=== PATIENT | female | born 1955 | race Caucasian/White ===

== ENCOUNTER 2019-03-21 01:43 | Outpatient (CLI) | payer OTHER, SELFPAY ==
--- NOTE | 2019-03-21 14:44 | DI.MAMMO_ITS ---
SYMPTOMS/DIAGNOSIS: H/O BREAST CA, Z85.3 MAMMOGRAMS: Mammograms were interpreted according to the usual protocol including computer analysis with CAD system, tomosynthesis and C view imaging. The breasts are of moderate density. Note is made of a prior right lumpectomy in the upper outer quadrant for breast carcinoma. No new mass or clumped microcalcification identified in either breast. Examination is compared with the previous examinations including March 2017 and there has been no gross interval change in appearance in comparison with the previous studies. CONCLUSION: No specific evidence of malignancy at this time. Routine screening examinations are suggested at yearly intervals due to the history of breast carcinoma. Category 1, breast density category B. SA ASSESSMENT OF FINDINGS: Negative. Category 1. Patient will receive a letter notifying them of these results. BI-RADS category B. There are scattered areas of fibroglandular density.
== END 2019-03-21 02:03 ==
PROVIDERS: PCP Internal Medicine; Visit Provider Internal Medicine
DX: Z85.3 Personal history of malignant neoplasm of breast (principal); Z98.890 Other specified postprocedural states
CPT/HCPCS: 77062; 77066; G0279

== ENCOUNTER 2020-06-22 00:55 | Outpatient (CLI) | payer OTHER, SELFPAY ==
--- NOTE | 2020-06-22 | DI.MAMMO_ITS ---
EXAM: MG MAMMO SCREENING 60 MIN DUR CLINICAL HISTORY: SCREENING, PERSONAL H/O BREAST CA,Z85.3 TECHNIQUE: Mammograms were interpreted according to the usual protocol including computer analysis w [employer] CAD system, tomosynthesis and C-view imaging. COMPARISON: FINDINGS: Note is made of a prior right lumpectomy for breast carcinoma. No new mass or clumped microcalcifica tion identified in either breast. The current examination is compared with previous studies March 2019 and there has been no gross interval change in appearance in comparison with the prior studies. IMPRESSION: No specific evidence of malignancy at this time. Routine screening examinations are suggested at yea rly intervals due to the history of breast carcinoma. BI-RADS Category 1 - Negative Breast Density - Category C - Heterogeneously dense
== END 2020-06-22 01:15 ==
PROVIDERS: PCP Internal Medicine; Visit Provider Internal Medicine
DX: Z12.31 Encounter for screening mammogram for malignant neoplasm of breast (principal); Z85.3 Personal history of malignant neoplasm of breast
CPT/HCPCS: 77063; 77067

== ENCOUNTER 2020-11-01 16:29 | Outpatient (REF) | payer OTHER, SELFPAY ==
[2020-11-01 22:06] LABS: Anion Gap 7.9 mmol/L (3-11); BUN 12 mg/dL (7-18); CO2 28.1 mmol/L (21.0-32.0); CREATININE 0.88 mg/dL (0.55-1.02); Calcium 8.6 mg/dL (8.5-10.1); Calculated LDL 98 mg/dL (<100); Chloride 101 mmol/L (98-107); Cholesterol 211 mg/dL (<200); Glucose 110 mg/dL (74-106); HDL Cholesterol 106 mg/dL (40-60); Potassium 4.2 mmol/L (3.5-5.1); Sodium 137 mmol/L (136-145); TSH 3.24 uIU/mL (0.36-3.74); Triglyceride 38 mg/dL (<150)
== END 2020-11-01 16:49 ==
LOC: NCHCN 16:29
PROVIDERS: PCP Internal Medicine; Visit Provider Internal Medicine
DX: E10.65 Type 1 diabetes mellitus with hyperglycemia (principal); R03.0 Elevated blood-pressure reading, without diagnosis of hypertension; Z13.220 Encounter for screening for lipoid disorders
CPT/HCPCS: 80048; 80061; 84443

== ENCOUNTER 2021-01-21 19:05 | Outpatient (REF) | payer OTHER, SELFPAY ==
[2021-01-22 16:55] LABS: COVID-19 RT-PCR UVMMC Result Positive (Negative)
== END 2021-01-21 19:06 | disposition home or self-care (01) ==
LOC: NCHCN 19:05
PROVIDERS: PCP Internal Medicine; Visit Provider Internal Medicine
DX: Z20.828 Contact with and (suspected) exposure to other viral communicable diseases (principal)
CPT/HCPCS: U0003

== ENCOUNTER 2021-01-24 10:48 | Outpatient (CLI) | payer OTHER, SELFPAY ==
[2021-01-24 14:45] VITALS: BP 158/99; PULSE 63; RESP 16; TEMP 37.2; O2SAT 98
[2021-01-24] MEDS: Normal Saline Flush 10 ML SYR IVP (15:02)
[2021-01-24] MEDS: Normal Saline 500 ML 30 ML IV (15:02)
[2021-01-24 15:10] VITALS: BP 149/82; PULSE 56; RESP 16; TEMP 37.8; O2SAT 96
[2021-01-24 15:30] VITALS: BP 138/94; PULSE 52; RESP 16; TEMP 37.2; O2SAT 96
[2021-01-24 16:00] VITALS: BP 149/76; PULSE 54; RESP 18; TEMP 37.5; O2SAT 96
[2021-01-24 16:29] VITALS: BP 156/79; PULSE 66; RESP 16; TEMP 36.9; O2SAT 97
== END 2021-01-24 10:49 | disposition home or self-care (01) ==
LOC: INF 10:58
PROVIDERS: PCP Internal Medicine; Visit Provider Family Medicine
DX: U07.1 COVID-19 (principal)
CPT/HCPCS: 96365

== ENCOUNTER 2022-02-14 01:47 | Outpatient (CLI) | payer OTHER, SELFPAY ==
--- NOTE | 2022-02-14 | DI.MAMMO_ITS ---
Exam(s) MG MAMMO SCREENING 60 MIN DUR EXAM: MG MAMMO SCREENING 60 MIN DUR CLINICAL HISTORY: SCREENING FOR BREAST CANCER Z12.39, HX BREAST CANCER Z85.3 TECHNIQUE: Bilateral full field digital CC and MLO mammographic images were obtained with 3D tomosyn thesis and utilizing computer aided detection (CAD). COMPARISON: Available for comparison. FINDINGS: Masses/Architectural Distortion: None seen. The patient is status post right lumpectomy. Microcalcifications: No suspicious pleomorphic-type are seen. Skin Thickening/Nipple Retraction: None. IMPRESSION: 1. No significant interval change with no specific features of malignancy noted. 2. Unless there is more urgent need, screening mammography is recommended, as per [employer] guidelines. 3. Findings were discussed with the patient on the date of the examination. BI-RADS Category 2 - Benign Findings Breast Density - Category B - Scattered areas of fibroglandular density Breast density category C or D implies that the patient has dense breast tissue. Dense breast tissue is very common and is not abnormal but dense breast tissue can make it harder to find cancer on a ma mmogram. Also, dense breast tissue may increase their breast cancer risk. This information about the result of the mammogram report was provided to the patient to raise their awareness. Use this report when you speak with the patient about their risks for breast cancer, which includes their family hist ory. At that time, you may recommend for more screening tests (Ultrasound or MRI) as they might be us eful based on their risk. A negative radiographic report should not delay biopsy if a dominant or clinically suspicious mass is present. Up to ten percent of cancers are not identified on mammography. A negative report may reinforce clinical impression. Adenosis and dense breasts may obscure an underlying neoplasm. False positive reports average 6 to 10%. Patient will receive a letter notifying them of these results.
== END 2022-02-14 02:07 ==
PROVIDERS: PCP Internal Medicine; Visit Provider Family Medicine
DX: Z12.31 Encounter for screening mammogram for malignant neoplasm of breast (principal); Z85.3 Personal history of malignant neoplasm of breast; Z98.890 Other specified postprocedural states
CPT/HCPCS: 77063; 77067

== ENCOUNTER 2022-05-31 18:04 | Outpatient (REF) | payer OTHER, SELFPAY ==
[2022-05-31 20:25] LABS: HGB 13.4 g/dL (11.2-15.7); MCH 30.1 pg (27.0-33.0); MCHC 34.4 % (32.0-36.0); MCV 88 fL (80-95); MPV 11.5 fL (8.0-11.0); Platelet Count 212 10^3/uL (130-400); RBC 4.45 10^6/uL (3.93-5.22); RDW 12.8 % (11.7-14.6)
[2022-05-31 21:03] LABS: ALT 48 U/L (14-59); AST 32 U/L (15-37); Alkaline Phosphatase 73 U/L (46-116); Anion Gap 7.1 mmol/L (3-11); BUN 12 mg/dL (7-18); Bilirubin, Total 0.5 mg/dL (0.2-1.0); CO2 27.9 mmol/L (21.0-32.0); CREATININE 0.9 mg/dL (0.55-1.02); Chloride 102 mmol/L (98-107); Glucose 157 mg/dL (74-106); Potassium 4.3 mmol/L (3.5-5.1); Sodium 137 mmol/L (136-145); TSH (W/Ref FT4) 3.37 uIU/mL (0.36-3.74); Total Protein 7.2 g/dL (6.4-8.2)
== END 2022-05-31 18:05 | disposition home or self-care (01) ==
LOC: NCHCN 18:04
PROVIDERS: PCP Internal Medicine; Visit Provider Family Medicine
DX: E10.9 Type 1 diabetes mellitus without complications (principal); R03.0 Elevated blood-pressure reading, without diagnosis of hypertension; E04.2 Nontoxic multinodular goiter; Z00.00 Encounter for general adult medical examination without abnormal findings
CPT/HCPCS: 80053; 85027; 84443

== ENCOUNTER 2022-09-21 02:13 | Outpatient (CLI) | payer MEDICARE, SELFPAY ==
--- NOTE | 2022-09-21 10:36 | DI.US_ITS ---
APPROVED REPORT EXAM: Comprehensive 2D, Doppler, and color-flow Echocardiogram Patient Location: Out-Patient Marketing Underwriter: Shannon Guevara RDCS (AE) Indications: Undiagnosed cardiac murmur Other Information Study Quality: Adequate Conclusion Normal left ventricular wall thickness and chamber size. Estimated ejection fraction is 60 to 65%. Wall motion is normal Normal right ventricular size and systolic function Both atria are normal in size There are no structural valvular abnormalities Mild to moderate mitral regurgitation Trace to mild tricuspid regurgitation. Estimated right ventricular systolic pressure is 43 mmHg Wall motion Left Ventricle The left ventricle is normal size. The left ventricular systolic function is normal. The left ventric ular ejection fraction is within the normal range. There is normal left ventricular wall thickness. T here is normal LV segmental wall motion. There is no ventricular septal defect visualized. LVEF is 60 -65%. Right Ventricle The right ventricle is normal size. The right ventricular systolic function is normal. The RVSP is 43 .1mmHg. Atria The left atrium size is normal. The right atrium size is normal. The interatrial septum is intact wit h no evidence for an atrial septal defect. Aortic Valve The aortic valve is normal in structure. Aortic valve is trileaflet. There is no aortic valvular sten osis. No aortic regurgitation is present. Mitral Valve The mitral valve is normal in structure. No evidence of mitral valve stenosis. Mild to moderate frank l regurgitation. Tricuspid Valve The tricuspid valve is normal in structure. There is no tricuspid valve stenosis. Trace to mild tricu spid regurgitation. Pulmonic Valve The pulmonary valve is normal in structure. There is no pulmonic valvular stenosis. Trace pulmonic re gurgitation. Great Vessels The aortic root is normal in size. The ascending aorta is normal in size. Aortic arch is normal in ca liber. IVC is normal in size and collapses >50% with inspiration. Pericardium There is no pericardial effusion. 2D Dimensions IVSD d PLAX 0.99 cm F: 0.6-1.0 LV Vol A2C d MOD 82.6 mL LVPW d PLAX 0.98 cm F: 0.6 - 1.0 LV Vol A4C d MOD 93.4 mL LVID d PLAX 4.76 cm F: 3.8 - 5.2 LA vol/ BSA A2C s A-L 27.4 mL/m2 LVDs 3.20 cm F: 2.2 - 3.5 LA vol/ BSA A4C s A-L 34.5 mL/m2 Ao Root d 2.37 cm F: 2.7 - 3.3 LA Vol/ BSA Biplane s A-L 31.6 mL/m2 RA Area A4C 10.48 cm2 LA Area A4C s MOD 21.33 cm2 RA Vol/ BSA A4C s A-L 12.0 mL/m2 LA Area A2C s MOD 18.53 cm2 Ao Asc Diam d 2.74 cm F: 2.3 - 3.1 LV EF A4C MOD 60.0 % LV EF Teichholz 60.3 % LV EF A2C MOD 65.2 % LVEF (Oneal's) 63.05 % F: 54 - 74 LV EF Biplane MOD 63.0 % LV Volume 69.23 mL F: 46 - 106 SV 56.17 mL LV Volume Index 38.46 mL/m2 F: 29 - 61 SV Index 31.12 mL/m2 LV Vol Biplane MOD 89.1 mL FS 32.15 % M-Mode TAPSE 2.96 cm (M/F) >1.7 LV Diastology MV E' medial 0.147 (>0.07 m/s) E/A Ratio 1.1 LV E/e MED 7.95 (<14) MV E Vmax 1.17 (0.4-1.3 m/s) MV E' lateral 0.110 (>0.1 m/s) MV A Vmax 1.05 (0.4-1.3 m/s) LV E/e LAT 10.65 (<14) MV E/A Ratio 1.08 MV E/E' medial 7.95 MV E/E' lateral 10.65 Aortic Valve LVOT Area 2.87 cm2 AoV Area Vmax 2.22 cm2 LVOT Vmax 1.28 m/s AoV Area/ BSA (Vmax) 1.23 cm2/m2 LVOT Mean Pankaj. 0.84 m/s CLARENCE Mean Pankaj. 1.96 cm2 LVOT Peak Grad 6.5 mmHg CLARENCE Mean Pankaj. Index 1.09 cm2/m2 LVOT Mean Grad 3.3 mmHg LVOT VTI 0.307 m LVOT Diam s 1.90 cm AoV Vmax 1.65 m/s Velocity Ratio 0.77 AoV Mean Pankaj. 1.23 m/s AoV Peak Grad 10.9 mmHg LVOT SV 88.33 mL AoV Mean Grad 6.5 mmHg AoV VTI 0.369 m AoV Area VTI 2.39 cm2 AoV Area/ BSA (VTI) 1.33 cm/m2 Mitral Valve MV DT 246 (160-240 msec) MR PISA Radius 0.51 cm MV PHT 71 msec MR Aliasing Velocity 0.35 m/s MV Area PHT 3.09 cm2 MR PISA 1.66 cm2 MV VTI 0.442 m MV Area VTI 2.00 (4.0-6.0 cm2) Pulmonary Valve PV Vmax 1.43 (0.5-1.5 m/s) RVOT Peak Gr. 5.44 mmHg PV Peak Grad 8.1 mmHg RVOT Mean Gr. 2.95 mmHg PV Mean Grad 4.3 mmHg RVOT VTI 0.251 m PV VTI 0.300 m RVOT Vmax 1.17 m/s Tricuspid Valve TR Peak Grad 40.0 mmHg TR Vmax 3.17 m/s RA Pressure 3.00 mmHg RVSP (TR) 43.1 mmHg
== END 2022-09-21 02:33 ==
PROVIDERS: PCP Internal Medicine; Visit Provider Family Medicine
DX: R01.1 Cardiac murmur, unspecified (principal)
CPT/HCPCS: 93306

== ENCOUNTER 2023-04-30 08:43 | Outpatient (REF) | payer MEDICARE, SELFPAY ==
[2023-04-30 15:54] LABS: Glucose 70 mg/dL (74-106)
[2023-04-30 21:56] LABS: CRP, High Sensitivity 1.42 mg/L (See Note)
== END 2023-04-30 08:44 | disposition home or self-care (01) ==
LOC: NCHCN 08:43
PROVIDERS: PCP Internal Medicine; Visit Provider Family Medicine
DX: E10.9 Type 1 diabetes mellitus without complications (principal)
CPT/HCPCS: 82947; 86141

== ENCOUNTER 2023-05-15 00:58 | Outpatient (CLI) | payer MEDICARE, SELFPAY ==
--- NOTE | 2023-05-15 13:45 | DI.MRI_ITS ---
Exam(s) MR LUMBAR SPINE WO EXAM: MR LUMBAR SPINE WO CLINICAL HISTORY: LUMBAR BACK PAIN WITH RADICULOPATHY, M54.16 TECHNIQUE: Multiplanar multisequence MRI of the Lumbar Spine was performed. CONTRAST MATERIAL: Noncontrast COMPARISON: No exams were available for comparison FINDINGS: Bones: The last intervertebral disc space is designated the L5/S1 level for the numbering purpose of this examination. The vertebral body heights are well maintained. Alignment is satisfactory. The sig nal characteristics are unremarkable. Cord: The conus tip ends at the T12 level. It is of normal size and signal intensity. The nerve ro ots are clumped behind the L 3 vertebral body likely secondary to severe stenosis at L 3 4. T12-L1: No disc herniations or bulges are present. L1-2: No disc herniations or bulges are present. L2-3: Minimal disc bulging. Mild ligamentous hypertrophy. No neural foraminal narrowing or central canal stenosis. L3-4: Severe loss of disc height. Degenerative signal changes in the endplates. Mild endplate oste ophytes. Prominent facet joint degenerative changes and ligamentous hypertrophy. Severe central can al stenosis. Mild retrolisthesis of L5. Mild bilateral neural foraminal narrowing. L4-5: Minimal disc bulging. Mild facet degenerative changes. No significant central canal stenosis or neural foraminal narrowing. L5-S1: No disc herniations or bulges are present. Facet degenerative changes. No significant centra l canal stenosis or neural foraminal narrowing. Soft tissues: The visualized SI joints and sacrum are well maintained. The paraspinal soft tissues ar e unremarkable. There is no evidence of suspicious enhancement. IMPRESSION: Severe central canal stenosis at L 3 4 secondary to combination of degenerative changes. This causes clumping of the nerve roots above this level. DATA REPOSITORY:
== END 2023-05-15 01:18 ==
LOC: DI 00:58
PROVIDERS: PCP Internal Medicine; Visit Provider Family Medicine
DX: M47.816 Spondylosis without myelopathy or radiculopathy, lumbar region (principal); M48.061 Spinal stenosis, lumbar region without neurogenic claudication
CPT/HCPCS: 72148

== ENCOUNTER 2023-05-24 03:04 | Outpatient (CLI) | payer MEDICARE, SELFPAY ==
[2023-05-24 08:18] LABS: Hemoglobin A1C 7.6 % (<5.7)
[2023-05-24 08:20] LABS: COMMENT (LAB VIEW ONLY) 34.85 mg/dL; Microalb ug/mg Crea 12.1 ug/mg Cr
[2023-05-24 08:30] LABS: CREATININE 0.9 mg/dL (0.55-1.02); Estimated GFR 69.64 (mL/min/1.73m2); Glucose 79 mg/dL (74-106); TSH 5.61 uIU/mL (0.36-3.74)
[2023-05-25 17:49] LABS: C-Peptide <0.1 ng/mL (1.1 - 4.4)
== END 2023-05-24 03:05 | disposition home or self-care (01) ==
LOC: LBO 03:04
PROVIDERS: PCP Internal Medicine; Visit Provider Internal Medicine Endocrinology, Diabetes & Metabolism
DX: E10.65 Type 1 diabetes mellitus with hyperglycemia (principal)
CPT/HCPCS: 36415; 82947; 82043; 82565; 82570; 83036; 84443; 84681

== ENCOUNTER 2023-06-04 15:53 | Outpatient (REF) | payer MEDICARE, SELFPAY ==
[2023-06-04 15:48] LABS: TSH (W/Ref FT4) 3.11 uIU/mL (0.36-3.74)
== END 2023-06-04 15:54 | disposition home or self-care (01) ==
LOC: NCHCN 15:53
PROVIDERS: PCP Internal Medicine; Visit Provider Family Medicine
DX: E04.2 Nontoxic multinodular goiter (principal); E10.9 Type 1 diabetes mellitus without complications
CPT/HCPCS: 84443

== ENCOUNTER → 2023-06-27 01:44 | Outpatient (CLI) | payer MEDICARE, SELFPAY ==
--- NOTE | 2023-06-27 | DI.MAMMO_ITS ---
Exam(s) MG MAMMO SCREENING 60 MIN DUR EXAM: MG MAMMO SCREENING 60 MIN DUR CLINICAL HISTORY: HX BREAST CANCER Z85.3 HEALTH MAINTENANCE Z00.00 SCREENING BREAST CANCER TECHNIQUE: Mammograms were interpreted according to the usual protocol including computer analysis w [employer] CAD system, tomosynthesis and C-view imaging. COMPARISON: 2012 through 2021 FINDINGS: The breasts are composed of scattered fibroglandular densities, Breast Density category B. Post lumpectomy scarring is again noted in the upper outer quadrant of right breast. No suspicious masses or suspicious microcalcifications are seen. No skin thickening or abnormal axillary lymph nodes are seen. There has been no significant change from prior exams. IMPRESSION: BI-RADS Cat 2 - Benign Findings Yearly screening mammography is recommended. Breast Density - Category B, scattered fibroglandular densities. A negative radiographic report should not delay biopsy if a dominant or clinically suspicious mass is present. Up to ten percent of cancers are not identified on mammography. A negative report may reinforce clinical impression. Adenosis and dense breasts may obscure an underlying neoplasm. False positive reports average 6 to 10%. Patient will receive a letter notifying them of these results.
== END ==
PROVIDERS: PCP Internal Medicine; Visit Provider Family Medicine
DX: Z12.31 Encounter for screening mammogram for malignant neoplasm of breast (principal); Z85.3 Personal history of malignant neoplasm of breast
CPT/HCPCS: 77063; 77067

== ENCOUNTER → 2024-06-13 14:00 | Outpatient (CLI) | payer MEDICARE, SELFPAY ==
--- NOTE | 2024-06-13 | DI.RAD_ITS ---
Exam(s) XR CHEST 2V PA LATERAL EXAM: XR CHEST 2V PA LATERAL CLINICAL HISTORY: COUGH R05.9 TECHNIQUE: 2D digital imaging was performed of the chest. Two images were obtained. PA and lateral views were obtained. COMPARISON: No exams were available for comparison FINDINGS: MEDIASTINUM: Normal. HEART: Normal. PULMONARY VASCULATURE: Normal. LUNGS: Clear. PLEURAL SPACE: No pleural effusion or pneumothorax. BONE:Within normal limits for the patient's age. OTHER FINDINGS:Normal. IMPRESSION: No acute pulmonary findings. DATA REPOSITORY: RADIATION DOSE DELIVERED:
== END ==
PROVIDERS: PCP Internal Medicine; Visit Provider Physician Assistant Medical
DX: R05.9 Cough, unspecified (principal)
CPT/HCPCS: 71046

== ENCOUNTER 2025-03-06 14:46 | Outpatient (CLI) | payer MEDICARE, SELFPAY ==
[2025-03-06 15:32] LABS: Hemoglobin A1C 7.5 % (<5.7)
[2025-03-06 16:03] LABS: CREATININE 1.1 mg/dL (0.55-1.02); Estimated GFR 54.06 (mL/min/1.73m2)
[2025-03-06 16:07] LABS: COMMENT (LAB VIEW ONLY) 31.09 mg/dL; Microalb ug/mg Crea 26.7 ug/mg Cr
== END 2025-03-06 14:47 | disposition home or self-care (01) ==
LOC: LBO 14:46
PROVIDERS: PCP Internal Medicine; Visit Provider Internal Medicine Endocrinology, Diabetes & Metabolism
DX: E10.65 Type 1 diabetes mellitus with hyperglycemia (principal)
CPT/HCPCS: 36415; 82043; 82565; 82570; 83036

== ENCOUNTER 2025-06-11 15:02 | Outpatient (CLI) | payer MEDICARE, SELFPAY ==
[2025-06-11 15:48] LABS: Anion Gap 7.2 mmol/L (3-11); BUN 10 mg/dL (7-18); CO2 29.8 mmol/L (21.0-32.0); Calcium 9.0 mg/dL (8.5-10.1); Chloride 102 mmol/L (98-107); Estimated GFR 68.77 (mL/min/1.73m2); Glucose 118 mg/dL (74-106); Potassium 4.7 mmol/L (3.5-5.1); Sodium 139 mmol/L (136-145); TSH 2.06 uIU/mL (0.36-3.74)
[2025-06-11 15:50] LABS: Hemoglobin A1C 7.2 % (<5.7)
== END 2025-06-11 15:03 | disposition home or self-care (01) ==
LOC: LBO 15:03
PROVIDERS: PCP Internal Medicine; Visit Provider Internal Medicine Endocrinology, Diabetes & Metabolism
DX: E10.65 Type 1 diabetes mellitus with hyperglycemia (principal); E83.51 Hypocalcemia
CPT/HCPCS: 36415; 80048; 83036; 84443

== ENCOUNTER 2025-08-06 04:14 | Outpatient (CLI) | payer MEDICARE, SELFPAY ==
--- NOTE | 2025-08-06 | DI.MAMMO_ITS ---
Exam(s) MG MAMMO SCREENING 60 MIN DUR EXAM: MG MAMMO SCREENING 60 MIN DUR CLINICAL HISTORY: SCREENING MAMMO Z12.31 PERS HX BREAST CA TECHNIQUE: Bilateral full field digital CC and MLO mammographic images were obtained with 3D tomosynthesis and utilizing computer aided detection (CAD). COMPARISON: Comparison is made with prior examinations. FINDINGS: Masses/Architectural Distortion: No suspicious masses or areas of architectural distortion are present. The patient has had a prior right lumpectomy. Microcalcifications: No suspicious pleomorphic-type are seen. Skin Thickening/Nipple Retraction: None. IMPRESSION: 1. No significant interval change with no specific features of malignancy noted. 2. Unless there is more urgent need, screening mammography is recommended, as per [employer] guidelines. 3. The findings were discussed with the patient on the date of the examination. BI-RADS Category 2 - Benign Findings Breast Density - Category B - There are scattered areas of fibroglandular density. Breast density Category C or D implies that the patient has dense breast tissue. Dense breast tissue can make it harder to find cancer on a mammogram. Dense breast tissue is also associated with an increased risk of breast cancer. This information about the result of the mammogram report was provided to the patient to raise their awareness. Use this report when you speak with the patient about their risks for breast cancer, which includes their family history. At that time, you may recommend additional screening tests (Ultrasound or MRI) as these tests may add significant information. A negative radiographic report should not delay biopsy if a dominant or clinically suspicious mass is present. Up to ten percent of cancers are not identified on mammography. A negative report may reinforce clinical impression. Adenosis and dense breasts may obscure an underlying neoplasm. False positive reports average 6 to 10%. Patient will receive a letter notifying them of these results.
--- NOTE | 2025-08-06 09:59 | DI.DEXA_ITS ---
Exam(s) XR DEXA BONE DENSITY W/WO PEPITO EXAM: XR DEXA BONE DENSITY W/WO PEPITO CLINICAL HISTORY: ASYMPTOMATIC MENOPAUSAL STATE Z78.0 TECHNIQUE: COMPARISON: No exams were available for comparison FINDINGS: Lateral Spine Image: Unremarkable. No compression deformities identified. Posterior spinal surgery with posterior spinal rods and pedicle screws are seen at L3 and L4. Left hip: Total T-Score: -0.4 Total Z-Score: 1.2 T- and Z-scores: There is no evidence of osteoporosis. Left forearm: Total T-Score: -0.7 Total Z-Score: 1.4 T- and Z-scores: Within normal limits. IMPRESSION: No evidence of osteoporosis.
== END 2025-08-06 04:34 ==
PROVIDERS: PCP Family Medicine; Visit Provider Family Medicine
DX: Z13.820 Encounter for screening for osteoporosis (principal); Z12.31 Encounter for screening mammogram for malignant neoplasm of breast; Z78.0 Asymptomatic menopausal state
CPT/HCPCS: 77063; 77067; 77080